=== PATIENT | male | born 1995 | race African-American/Black ===

== ENCOUNTER 2020-02-29 15:58 | Emergency (ER) | payer MEDICAID ==
[2020-02-29] MEDS ORDERED: AZITHROMYCIN 250 MG TABLET PO ONE (16:07)
[2020-02-29] MEDS ORDERED: CEFTRIAXONE INJ 250 MG VIAL IM ONE (16:07)
[2020-02-29] MEDS ORDERED: LIDOCAINE 1% INJ-PF (10 MG/ML) 30 ML SDV IM ONE (16:07)
--- NOTE | 2020-02-29 16:09 | ER Document Report ---
HPI - HPI Time Seen by Provider: 02/29/20 16:07 Notes: 24-year-old male patient with history of asthma presenting to the emergency department chief complaint of dysuria. Patient reports his girlfriend tested positive for chlamydia. He denies any abnormal discharge, fever, chills, nausea or vomiting. - ROS Systems Reviewed and Negative: Yes All other systems reviewed and negative - URINARY Urinary: REPORTS: Dysuria Past Medical History - General Information source: Patient - Social History Smoking Status: Never Smoker Frequency of alcohol use: None Drug Abuse: None Family History: Reviewed & Not Pertinent Pulmonary Medical History: Reports: Hx Asthma Surgical Hx: Negative Vertical Provider Document - CONSTITUTIONAL Notes: PHYSICAL EXAMINATION: GENERAL: Well-appearing, well-nourished and in no acute distress. HEAD: Atraumatic, normocephalic. EYES: Pupils equal round extraocular movements intact, conjunctiva are normal. ENT: Nares patent NECK: Normal range of motion LUNGS: No respiratory distress Musculoskeletal: Normal range of motion NEUROLOGICAL: Normal speech, normal gait. PSYCH: Normal mood, normal affect. SKIN: Warm, Dry, normal turgor, no rashes or lesions noted. Course - Re-evaluation Re-evalutation: 02/29/20 16:12 Patient appears well, nontoxic, vital signs within normal limits. Urine sent down for chlamydia and gonorrhea. These tests will take several hours. He was treated with azithromycin and Rocephin. He will follow-up with the health department. - Vital Signs Vital signs: Temp Pulse Resp BP Pulse Ox 98.4 F 58 L 20 118/70 100 02/29/20 16:04 02/29/20 16:04 02/29/20 16:04 02/29/20 16:04 02/29/20 16:04 Discharge - Discharge Clinical Impression: STD exposure Condition: Stable Disposition: HOME, SELF-CARE Additional Instructions: You were seen and treated in the emergency department today with concerns for possible STD exposure. Your test results are pending. You were treated for chlamydia and gonorrhea with antibiotics. This does not mean you have chlamydia and gonorrhea but it means that you were treated in case you have them. Please no sexual intercourse that is unprotected for 7 days. Make sure your partner is also treated. [facility] [Outside] - Follow up as needed
[2020-02-29 17:34] VITALS: BP 120/72
[2020-02-29 19:14] LABS: CHLAM PCR DETECTED (NOT DETECT)
== END 2020-02-29 17:32 | disposition home or self-care (01) ==
LOC: ER 15:58
DX: Z20.2 Contact with and (suspected) exposure to infections with a predominantly sexual mode of transmission (principal); R30.0 Dysuria; J45.909 Unspecified asthma, uncomplicated
CPT/HCPCS: 99283; 96372; 87491; 87591; J3490; J0696